=== PATIENT | female | born 1965 | race Hispanic/Latino ===

== ENCOUNTER 2017-10-27 00:46 | Emergency (ER) | payer OTHER ==
[~2017-10-27 00:46] MED LIST: DOCU240C80 PO; FERS325 PO; MO8B PO; TYL3 PO
[2017-10-27] MEDS ORDERED: ONDANSETRON ODT 4 MG TAB ONE (01:00)
[2017-10-27] MEDS ORDERED: ACETAMINOPHEN-CODEINE ELIXIR 5 ML UDCUP ONE (01:34)
== END 2017-10-27 03:32 | disposition home or self-care (01) ==
LOC: EDH 00:46
DX: R11.2 Nausea with vomiting, unspecified (principal); E11.9 Type 2 diabetes mellitus without complications; I10 Essential (primary) hypertension
CPT/HCPCS: 82948

== ENCOUNTER 2018-03-14 22:47 | Emergency (ER) | payer MEDICAID, OTHER ==
[2018-03-14] MEDS ORDERED: MECLIZINE HCL 25 MG TABLET ONE (23:48)
[2018-03-14] MEDS ORDERED: SODIUM CHLORIDE 0.9% 500ML 500 ML IV ONE (23:48)
[2018-03-14] MEDS ORDERED: ONDANSETRON HCL 4 MG/2 ML VIAL ONE (23:48)
[2018-03-14 23:56] LABS: BASOPHILS % (AUTO) 0.6 % (0.0-5.0); EOSINOPHILS % (AUTO) 3.9 % (0.0-8.0); HEMATOCRIT 45.2 % (36-48); LYMPHOCYTES % (AUTO) 36.9 % (21.0-51.0); MEAN CORPUSCULAR HEMOGLOBIN 30.3 pg (27.0-33.0); MEAN CORPUSCULAR HGB CONC 33.8 g/dL (32.0-36.0); MEAN CORPUSCULAR VOLUME 89.7 fL (79-99); MONOCYTES % (AUTO) 7.4 % (3.0-13.0); NEUTROPHILS % (AUTO) 51.2 % (40.0-77.0); NUCLEATED RED BLOOD CELLS 0.1 % (0.0-0.19); PLATELET COUNT (AUTO) 191 K/uL (130-400); RED BLOOD CELL COUNT(AUTO) 5.05 MIL/uL (4.00-5.50); RED CELL DISTRIBUTION WIDTH 13.2 % (11.0-15.5); WHITE BLOOD COUNT (AUTO) 6.3 K/uL (4.8-10.8)
[2018-03-15 00:21] LABS: B-TYPE NATRIURETIC PEPTIDE 9 pg/mL (0-100)
[2018-03-15 00:28] LABS: CREATININE 0.7 mg/dL (0.5-1.5); POTASSIUM 3.8 mmol/L (3.5-5.1)
[2018-03-15 00:33] LABS: ALBUMIN 3.5 g/dL (3.5-5.0); BILIRUBIN,TOTAL 0.3 mg/dL (0.2-1.0); TOTAL PROTEIN, SERUM 8.1 g/dL (6.0-8.3)
== END 2018-03-15 01:11 | disposition home or self-care (01) ==
LOC: EDH 22:47
DX: R42 Dizziness and giddiness (principal); R53.1 Weakness; E11.9 Type 2 diabetes mellitus without complications; I10 Essential (primary) hypertension; Z90.710 Acquired absence of both cervix and uterus; Z72.0 Tobacco use
CPT/HCPCS: 36415; 70450; 71045; 80053; 82550; 83880; 84484; 85025; 93005; 94761; 96361; 96374; 99284; J2405; J7040

== ENCOUNTER 2018-05-30 04:52 | Emergency (ER) | payer OTHER ==
[2018-05-30] MEDS ORDERED: IPRATROPIUM/ALBUTEROL SULFATE 3 ML SOLUTION IH ONE ×2 (05:11)
[2018-05-30] MEDS ORDERED: DEXAMETHASONE SOD PHOSPHATE 10MG/ML 1ML VIAL ONE (05:16)
[2018-05-30] MEDS ORDERED: ACETAMINOPHEN 325 MG TAB ONE (05:26)
[2018-05-30 05:29] LABS: BASOPHILS % (AUTO) 0.6 % (0.0-5.0); EOSINOPHILS % (AUTO) 4.1 % (0.0-8.0); HEMATOCRIT 41.6 % (36-48); LYMPHOCYTES % (AUTO) 42.7 % (21.0-51.0); MEAN CORPUSCULAR HEMOGLOBIN 30.7 pg (27.0-33.0); MEAN CORPUSCULAR HGB CONC 34.2 g/dL (32.0-36.0); MEAN CORPUSCULAR VOLUME 89.8 fL (79-99); MONOCYTES % (AUTO) 8.7 % (3.0-13.0); NEUTROPHILS % (AUTO) 43.9 % (40.0-77.0); PLATELET COUNT (AUTO) 176 K/uL (130-400); RED BLOOD CELL COUNT(AUTO) 4.63 MIL/uL (4.00-5.50); RED CELL DISTRIBUTION WIDTH 13.3 % (11.0-15.5); WHITE BLOOD COUNT (AUTO) 6.9 K/uL (4.8-10.8)
[2018-05-30 05:42] LABS: CREATININE 0.6 mg/dL (0.5-1.5); POTASSIUM 3.4 mmol/L (3.5-5.1)
[2018-05-30 05:48] LABS: ALBUMIN 3.4 g/dL (3.5-5.0); BILIRUBIN,TOTAL 0.4 mg/dL (0.2-1.0); TOTAL PROTEIN, SERUM 7.8 g/dL (6.0-8.3)
== END 2018-05-30 06:22 | disposition home or self-care (01) ==
LOC: EDH 04:52
DX: J45.901 Unspecified asthma with (acute) exacerbation (principal); I10 Essential (primary) hypertension; E11.9 Type 2 diabetes mellitus without complications; Z90.710 Acquired absence of both cervix and uterus
CPT/HCPCS: 36415; 71045; 80053; 85025; 94640 ×2; 99284; J1100

== ENCOUNTER 2022-04-12 22:28 | Emergency (ER) | payer BC, OTHER ==
[~2022-04-12] VITALS: Ht 160 cm; Wt 81.6 kg
[~2022-04-12 22:28] MED LIST changes: +IBUP-1493 PO; -MO8B PO
[2022-04-12] MEDS ORDERED: OSEL75 PO (23:52)
[2022-04-12] MEDS ORDERED: CYCL10TA16 PO (23:52)
[2022-04-13 00:54] VITALS: BP 146/84
== END 2022-04-13 00:54 | disposition home or self-care (01) ==
LOC: EDH 22:28
DX: J10.1 Influenza due to other identified influenza virus with other respiratory manifestations (principal); S46.911A Strain of unspecified muscle, fascia and tendon at shoulder and upper arm level, right arm, initial encounter; E11.9 Type 2 diabetes mellitus without complications; J45.909 Unspecified asthma, uncomplicated; Z90.49 Acquired absence of other specified parts of digestive tract; Z79.899 Other long term (current) drug therapy; Z20.822 Contact with and (suspected) exposure to COVID-19; W19.XXXA Unspecified fall, initial encounter; Y93.89 Activity, other specified; Y92.89 Other specified places as the place of occurrence of the external cause; Y99.8 Other external cause status
CPT/HCPCS: 99283; 87635; 87880; 87804 ×2; 73030; C9803

== ENCOUNTER 2022-04-27 00:17 | Emergency (ER) | payer BC ==
[~2022-04-27 00:17] MED LIST changes: +CYCL10TA16 PO; +OSEL75 PO
== END 2022-04-27 00:51 | disposition left against medical advice (07) ==
LOC: EDH 00:17
DX: R05.9 Cough, unspecified (principal); Z53.21 Procedure and treatment not carried out due to patient leaving prior to being seen by health care provider
CPT/HCPCS: 96374